=== PATIENT | female | born 1965 | race Caucasian/White ===

== ENCOUNTER 2021-05-22 23:44 | Emergency (ER) | payer MEDICAID ==
[~2021-05-22] VITALS: Ht 170.2 cm; Wt 104.3 kg
[2021-05-23 01:36] LABS: Basophils # (auto) 0.1 10 ^3/uL (0-0.2); Basophils % (auto) 0.7 % (0.0-2.0); Eosinophils # (auto) 0.5 10 ^3/uL (0-0.8); Eosinophils % (auto) 5.6 % (0.0-7.0); Hematocrit 48.3 % (36.0-46.0); Hemoglobin 16.6 g/dL (12.2-16.2); Lymphocytes # (auto) 1.5 10 ^3/uL (0.4-5.4); Lymphocytes % (auto) 17.1 % (10.0-50.0); Mean Corpuscular Hemoglobin 31.6 pg (28.0-32.0); Mean Corpuscular Hgb Conc. 34.5 g/dL (32.0-36.0); Mean Corpuscular Volume 91.7 fL (80.0-100.0); Monocytes # (auto) 0.6 10 ^3/uL (0-1.3); Monocytes % (auto) 7.6 % (0.0-12.0); Neutrophils # (auto) 5.9 10 ^3/uL (1.6-8.6); Nucleated Red Blood Cells % 0.1 %; Red Blood Cells 5.26 10^6/uL (4.0-5.20); Red Cell Distribution Width 14.2 % (11.8-14.3); White Blood Cell 8.5 10^3/uL (4.4-10.8)
[2021-05-23 01:56] LABS: Albumin 3.4 g/dL (3.4-5.0); Anion Gap 5 (5-15); Blood Urea Nitrogen 17 mg/dL (7-18); Carbon Dioxide 28 mmol/L (21-32); Chloride 104 mmol/L (98-107); Glucose 158 mg/dL (74-106); Lipase 73 U/L (73-393); Potassium 4.4 mmol/L (3.5-5.1); Sodium 137 mmol/L (136-145)
[2021-05-23 01:58] LABS: Alanine Aminotransferase 31 U/L (13-56); Aspartate Aminotransferase 17 U/L (15-37); GFR African American 74 mL/min; GFR Non-African American 61 mL/min
[2021-05-23 02:03] LABS: Alkaline Phosphatase 93 U/L (45-117); Bilirubin, Total 0.6 mg/dL (0.2-1.0)
[2021-05-23] MEDS ORDERED: HYDROcodone-ACET 7.5/325MG TAB PO ONE (03:00)
[2021-05-23 08:38] LABS: Urine Bacteria FEW /hpf (None Seen); Urine Blood TRACE /uL (Negative); Urine Hyaline Cast FEW /lpf (0 - 2); Urine Mucus FEW (None Seen); Urine Specific Gravity 1.025 (1.001-1.035); Urine WBC 1 /hpf (0 - 5)
[2021-05-23 08:41] VITALS: BP 151/73
== END 2021-05-23 09:31 | disposition home or self-care (01) ==
LOC: EDBD 23:44 → EDUNIT# 23:44 → ER 23:49
DX: R10.32 Left lower quadrant pain (principal); R35.0 Frequency of micturition; F17.210 Nicotine dependence, cigarettes, uncomplicated; J44.9 Chronic obstructive pulmonary disease, unspecified; I10 Essential (primary) hypertension; Z87.442 Personal history of urinary calculi; Z87.440 Personal history of urinary (tract) infections; Z88.2 Allergy status to sulfonamides
CPT/HCPCS: 36415; 71045; 72131; 74176; 80053; 81001; 83690; 83735; 84484; 85025; 85049; 93005